=== PATIENT | female | born 1990 | race Two or more races ===

== ENCOUNTER 2020-04-04 02:32 | Emergency (ER) | payer SELFPAY ==
[~2020-04-04] VITALS: Ht 157.5 cm; Wt 58.5 kg
--- NOTE | 2020-04-04 02:48 | NUR ---
PT RAHUL C/O FEELING ANXIOUS DUE TO ETOH AND TAKING "[employer] [facility]" TO ER BED 7 VSS
--- NOTE | 2020-04-04 03:48 | NUR ---
Patient is resting comfortably in bed with eyes closed. Easily aroused. VSS. will cont to monitor
--- NOTE | 2020-04-04 04:06 | NUR ---
pt awake and alert. ambulatory to the bathroom with steady gaits. swallow eval done w/ no s/s of choking. fluid offered. tolerated well.
[2020-04-04] MEDS ORDERED: ONDANSETRON 4 MG TAB.RAPDIS ONE (04:13)
[2020-04-04] MEDS ORDERED: ONDANSETRON 4 MG TAB.RAPDIS SL ONE (04:30)
--- NOTE | 2020-04-04 05:58 | NUR ---
PT ON HTE PHONE WITH HER EX TO ARRANGE TRANSPORTAWTION.
--- NOTE | 2020-04-04 06:08 | NUR ---
Patient discharged to home in stable condition. Written and verbal after care instructions given. Patient verbalizes understanding of instruction.
[2020-04-04 06:09] VITALS: BP 122/65
== END 2020-04-04 06:09 | disposition home or self-care (01) ==
LOC: ER 02:32
DX: F10.129 Alcohol abuse with intoxication, unspecified (principal); Y90.9 Presence of alcohol in blood, level not specified
CPT/HCPCS: 99283; Q0162